=== PATIENT | female | born 1955 | race Caucasian/White ===

== ENCOUNTER 2018-05-08 18:01 | Inpatient (IN) | payer BC ==
[2018-05-08] MEDS ORDERED: ALPRAZOLAM 0.5 MG TAB PO (19:30)
[2018-05-08] MEDS ORDERED: ONDANSETRON 4 MG INJ IV (19:30)
[2018-05-08] MEDS ORDERED: ACET/BUTAL/CAFF/CODEINE CAP PO (19:30)
[2018-05-08] MEDS ORDERED: ZOLPIDEM 5 MG TAB PO (19:30)
[2018-05-08] MEDS ORDERED: NACL 0.9% 3 ML SYG IV (19:30)
[2018-05-08] MEDS ORDERED: VANCOMYCIN IV PER PHARMACY XX (19:30)
[2018-05-08] MEDS ORDERED: ACETAMINOPHEN 325 MG TAB PO (19:30)
[2018-05-08] MEDS ORDERED: DOCUSATE SODIUM 100 MG CAP PO (19:30)
[2018-05-08] MEDS ORDERED: METOCLOPRAMIDE 5 MG TAB PO (19:30)
[2018-05-08 20:04] LABS: ADD MAN DIFF? NO
[2018-05-08] MEDS: VANCOMYCIN 1 GM (PMX) 250 ML IVPB (20:08)
[2018-05-08] MEDS: SOD CHLORIDE 0.9% 1,000 ML IV (20:08)
[2018-05-08 20:09] LABS: BASOPHIL # 0.1 10^3/ul (0.0-0.1); BASOPHILS % 0.5 % (0.0-2.0); EOSINOPHILS # 0.1 10^3/ul (0.0-0.5); EOSINOPHILS % 1.4 % (0.0-7.0); HEMATOCRIT 41.5 % (37.0-47.0); HEMOGLOBIN 13.6 g/dl (12.0-16.0); LYMPHOCYTES # 2.7 10^3/ul (0.8-2.9); LYMPHOCYTES % 26.5 % (15.0-51.0); MEAN CORPUSCULAR HEMOGLOBIN 31.6 pg (29.0-33.0); MEAN CORPUSCULAR HGB CONC 32.8 g/dl (32.0-37.0); MEAN CORPUSCULAR VOLUME 96.5 fl (82.0-101.0); MEAN PLATELET VOLUME 10.9 fl (7.4-10.4); MONOCYTE # 0.7 10^3/ul (0.3-0.9); MONOCYTES % 7.4 % (0.0-11.0); NEUTROPHIL # 6.3 10^3/ul (1.6-7.5); NEUTROPHILS % 63.3 % (39.0-77.0); PLATELET COUNT 193 10^3/UL (140-415); RED CELL DISTRIBUTION WIDTH 12.9 % (11.5-14.5)
[2018-05-08] MEDS: GABAPENTIN 300 MG CAP PO (20:16)
[2018-05-08] MEDS: FAMOTIDINE 20 MG TAB PO (20:16)
[2018-05-08] MEDS: ATORVASTATIN 10 MG TAB PO (20:17)
[2018-05-08] MEDS: LOSARTAN 25 MG TAB PO (20:17)
[2018-05-08 20:25] LABS: INR 0.97
[2018-05-08 20:26] LABS: PARTIAL THROMBOPLASTIN TIME 29.8 Sec (23.0-35.0)
[2018-05-08 20:27] LABS: ALANINE AMINOTRANSFERASE 23 IU/L (13-69); ALBUMIN 4.1 g/dl (3.3-4.9); ALBUMIN/GLOBULIN RATIO 1.28; ALKALINE PHOSPHATASE 69 IU/L (42-121); ANION GAP 11 (5-13); ASPARTATE AMINO TRANSFERASE 26 IU/L (15-46); BILIRUBIN,INDIRECT 0.5 mg/dl (0-1.1); BILIRUBIN,TOTAL 0.5 mg/dl (0.2-1.3); BLOOD UREA NITROGEN 14 mg/dl (7-20); CALCIUM 9.7 mg/dl (8.4-10.2); CARBON DIOXIDE 27 mmol/L (21-31); CHLORIDE 100 mmol/L (97-110); CREATININE 1.17 mg/dl (0.44-1.00); Estimated GFR 47 mL/min (>60); GLUCOSE 136 mg/dl (70-220); MAGNESIUM 2.3 mg/dl (1.7-2.5); PHOSPHORUS 3.2 mg/dl (2.5-4.9); POTASSIUM 4.3 mmol/L (3.5-5.1); SODIUM 138 mmol/L (135-144); TOTAL PROTEIN 7.3 g/dl (6.1-8.1)
[2018-05-08] MEDS ORDERED: NORTRIPTYLINE 50 MG CAP PO (21:00)
[2018-05-08] MEDS: NORTRIPTYLINE 25 MG CAP PO (21:22)
[2018-05-08] MEDS: CHLORDIAZEPOXIDE/CLIDINIUM CAP PO (21:22)
[2018-05-08] MEDS: TOPIRAMATE 25 MG TAB PO (21:22)
[2018-05-08] MEDS: INSULIN ASPART [NOVOLOG] 3 ML PEN SC (21:23)
[2018-05-08] MEDS ORDERED: GLUCAGON 1 MG INJ IM (21:30)
[2018-05-08] MEDS ORDERED: DEXTROSE 50% 50 ML SYRINGE IV ×2 (21:30)
[2018-05-08] MEDS ORDERED: GLUCOSE GEL 15 GRAM TUBE BUCCAL (21:30)
[2018-05-08] MEDS ORDERED: GLUCOSE GEL 15 GRAM TUBE PO ×2 (21:30)
[2018-05-08] MEDS: HYDROCODONE/APAP (5/325) TAB PO (21:37)
[2018-05-08] MEDS: VANCOMYCIN 1.5 GM in SOD CHLORIDE 0.9% 250 ML IVPB (23:20)
[2018-05-09] MEDS: ACCU-CHEK XX (02:00)
[2018-05-09] MEDS: PANTOPRAZOLE (EC) 40 MG TAB PO (05:33)
[2018-05-09 05:56] LABS: ANION GAP 8 (5-13); BLOOD UREA NITROGEN 14 mg/dl (7-20); CALCIUM 9.2 mg/dl (8.4-10.2); CARBON DIOXIDE 28 mmol/L (21-31); CHLORIDE 102 mmol/L (97-110); CREATININE 1.29 mg/dl (0.44-1.00); Estimated GFR 42 mL/min (>60); GLUCOSE 150 mg/dl (70-220); MAGNESIUM 2.1 mg/dl (1.7-2.5); PHOSPHORUS 4.4 mg/dl (2.5-4.9); POTASSIUM 4.4 mmol/L (3.5-5.1); SODIUM 138 mmol/L (135-144)
[2018-05-09] MEDS ORDERED: PANTOPRAZOLE (EC) 40 MG TAB PO (06:00)
[2018-05-09 06:02] LABS: CHOLESTEROL 115 mg/dl (100-200)
[2018-05-09 06:02] LABS: CHOL/HDL RATIO 2.7 RATIO; CREATINE KINASE 38 IU/L (23-200); HDL CHOLESTEROL 42 mg/dl (35-98); LDL CHOLESTEROL,CALCULATED 42 mg/dl; TRIGLYCERIDES 155 mg/dl (0-149)
[2018-05-09] MEDS: INSULIN ASPART [NOVOLOG] 3 ML PEN SC ×7 (08:00→21:00)
[2018-05-09] MEDS: CHLORDIAZEPOXIDE/CLIDINIUM CAP PO ×2 (08:28→20:59)
[2018-05-09] MEDS: VANCOMYCIN 1 GM 250 ML IVPB ×2 (08:28→20:58)
[2018-05-09] MEDS: FENOFIBRATE 145 MG TAB PO (08:28)
[2018-05-09] MEDS: MAGNESIUM OXIDE 400 MG TAB PO (08:28)
[2018-05-09] MEDS: GABAPENTIN 300 MG CAP PO ×3 (08:28→20:59)
[2018-05-09] MEDS: ASPIRIN 81 MG TAB PO (08:28)
[2018-05-09] MEDS: TOPIRAMATE 25 MG TAB PO ×2 (08:28→21:00)
[2018-05-09] MEDS: AMILORIDE 5 MG TAB PO (08:29)
[2018-05-09] MEDS: ENOXAPARIN 40 MG/0.4 ML SYG SC (08:30)
[2018-05-09] MEDS: INSULIN GLARGINE [LANTus] (100 UNITS/ML) SYG SC (08:32)
[2018-05-09] MEDS: HYDROCODONE/APAP (5/325) TAB PO (12:08)
[2018-05-09] MEDS: SOD CHLORIDE 0.9% 1,000 ML IV (19:09)
[2018-05-09] MEDS: ATORVASTATIN 10 MG TAB PO (20:59)
[2018-05-09] MEDS: NORTRIPTYLINE 25 MG CAP PO (21:00)
[2018-05-10] MEDS: HYDROCODONE/APAP (5/325) TAB PO ×3 (00:18→20:49)
[2018-05-10] MEDS: ACCU-CHEK XX (01:03)
[2018-05-10] MEDS: PANTOPRAZOLE (EC) 40 MG TAB PO (05:31)
[2018-05-10 07:36] LABS: ADD MAN DIFF? NO
[2018-05-10 07:40] LABS: WHITE BLOOD COUNT 5.1 10^3/ul (4.8-10.8)
[2018-05-10 07:40] LABS: BASOPHILS % 0.8 % (0.0-2.0); EOSINOPHILS # 0.2 10^3/ul (0.0-0.5); EOSINOPHILS % 4.3 % (0.0-7.0); HEMATOCRIT 40.5 % (37.0-47.0); HEMOGLOBIN 12.8 g/dl (12.0-16.0); LYMPHOCYTES % 38.4 % (15.0-51.0); MEAN CORPUSCULAR HEMOGLOBIN 31.2 pg (29.0-33.0); MEAN CORPUSCULAR HGB CONC 31.6 g/dl (32.0-37.0); MEAN CORPUSCULAR VOLUME 98.8 fl (82.0-101.0); MEAN PLATELET VOLUME 10.7 fl (7.4-10.4); MONOCYTE # 0.4 10^3/ul (0.3-0.9); MONOCYTES % 8.2 % (0.0-11.0); NEUTROPHIL # 2.4 10^3/ul (1.6-7.5); NEUTROPHILS % 47.7 % (39.0-77.0); PLATELET COUNT 177 10^3/UL (140-415); RED CELL DISTRIBUTION WIDTH 12.8 % (11.5-14.5)
[2018-05-10] MEDS: INSULIN ASPART [NOVOLOG] 3 ML PEN SC ×7 (08:00→20:50)
[2018-05-10 08:01] LABS: ANION GAP 10 (5-13); BLOOD UREA NITROGEN 9 mg/dl (7-20); CALCIUM 9.3 mg/dl (8.4-10.2); CARBON DIOXIDE 24 mmol/L (21-31); CHLORIDE 104 mmol/L (97-110); CREATININE 0.93 mg/dl (0.44-1.00); Estimated GFR > 60 mL/min (>60); GLUCOSE 100 mg/dl (70-220); SODIUM 138 mmol/L (135-144)
[2018-05-10 08:10] LABS: VANCOMYCIN,TROUGH 16.3 ug/ml (10.0-20.0)
[2018-05-10] MEDS: INSULIN GLARGINE [LANTus] (100 UNITS/ML) SYG SC (08:30)
[2018-05-10] MEDS: MAGNESIUM OXIDE 400 MG TAB PO (09:25)
[2018-05-10] MEDS: ASPIRIN 81 MG TAB PO (09:25)
[2018-05-10] MEDS: CHLORDIAZEPOXIDE/CLIDINIUM CAP PO ×2 (09:25→23:09)
[2018-05-10] MEDS: AMILORIDE 5 MG TAB PO (09:26)
[2018-05-10] MEDS: GABAPENTIN 300 MG CAP PO ×3 (09:27→20:50)
[2018-05-10] MEDS: ENOXAPARIN 40 MG/0.4 ML SYG SC (09:27)
[2018-05-10] MEDS: FENOFIBRATE 145 MG TAB PO (09:28)
[2018-05-10] MEDS: TOPIRAMATE 25 MG TAB PO ×2 (09:28→20:50)
[2018-05-10] MEDS: VANCOMYCIN 1 GM 250 ML IVPB (09:47)
[2018-05-10] MEDS: SOD CHLORIDE 0.9% 1,000 ML IV (20:50)
[2018-05-10] MEDS: ATORVASTATIN 10 MG TAB PO (20:50)
[2018-05-10] MEDS: NORTRIPTYLINE 25 MG CAP PO (20:50)
[2018-05-10] MEDS: VANCOMYCIN 750 MG in SOD CHLORIDE 0.9% 150 ML IVPB (22:10)
[2018-05-11] MEDS: ACCU-CHEK XX (02:00)
[2018-05-11] MEDS: PANTOPRAZOLE (EC) 40 MG TAB PO (05:48)
[2018-05-11] MEDS: INSULIN ASPART [NOVOLOG] 3 ML PEN SC ×7 (08:00→20:48)
[2018-05-11] MEDS: ASPIRIN 81 MG TAB PO (08:15)
[2018-05-11] MEDS: AMILORIDE 5 MG TAB PO (08:15)
[2018-05-11] MEDS: FENOFIBRATE 145 MG TAB PO (08:15)
[2018-05-11] MEDS: CHLORDIAZEPOXIDE/CLIDINIUM CAP PO ×2 (08:15→20:34)
[2018-05-11] MEDS: GABAPENTIN 300 MG CAP PO ×3 (08:15→20:35)
[2018-05-11] MEDS: MAGNESIUM OXIDE 400 MG TAB PO (08:15)
[2018-05-11] MEDS: ENOXAPARIN 40 MG/0.4 ML SYG SC (08:20)
[2018-05-11] MEDS: TOPIRAMATE 25 MG TAB PO ×2 (08:20→20:40)
[2018-05-11] MEDS: INSULIN GLARGINE [LANTus] (100 UNITS/ML) SYG SC (08:20)
[2018-05-11] MEDS: VANCOMYCIN 750 MG in SOD CHLORIDE 0.9% 150 ML IVPB ×2 (10:01→21:07)
[2018-05-11 13:00] LABS: ADD UMIC NO; UR ASCORBIC ACID NEGATIVE (NEGATIVE); UR BILIRUBIN (Dip) NEGATIVE (NEGATIVE); UR BLOOD (Dip) NEGATIVE (NEGATIVE); UR CLARITY CLEAR (CLEAR); UR COLOR YELLOW (YELLOW); UR GLUCOSE (Dip) 3+ mg/dL (NEGATIVE); UR KETONES (Dip) 1+ mg/dL (NEGATIVE); UR LEUKOCYTE ESTERASE (Dip) NEGATIVE Leu/ul (NEGATIVE); UR NITRITE (Dip) NEGATIVE (NEGATIVE); UR SPECIFIC GRAVITY (Dip) 1.011 (1.003-1.030); UR TOTAL PROTEIN (Dip) NEGATIVE (NEGATIVE); UR UROBILINOGEN (Dip) NEGATIVE (NEGATIVE)
[2018-05-11] MEDS: SOD CHLORIDE 0.9% 1,000 ML IV (17:15)
[2018-05-11] MEDS: ATORVASTATIN 10 MG TAB PO (20:34)
[2018-05-11] MEDS: NORTRIPTYLINE 25 MG CAP PO (20:36)
[2018-05-11] MEDS: HYDROCODONE/APAP (5/325) TAB PO (20:40)
[2018-05-12] MEDS: ACCU-CHEK XX (02:00)
[2018-05-12] MEDS: HYDROCODONE/APAP (5/325) TAB PO ×2 (04:41→21:58)
[2018-05-12] MEDS: PANTOPRAZOLE (EC) 40 MG TAB PO (05:36)
[2018-05-12 08:39] LABS: ADD MAN DIFF? NO
[2018-05-12 08:48] LABS: WHITE BLOOD COUNT 4.8 10^3/ul (4.8-10.8)
[2018-05-12 08:48] LABS: BASOPHIL # 0.1 10^3/ul (0.0-0.1); EOSINOPHILS # 0.2 10^3/ul (0.0-0.5); HEMATOCRIT 40.8 % (37.0-47.0); HEMOGLOBIN 13.1 g/dl (12.0-16.0); LYMPHOCYTES # 2.3 10^3/ul (0.8-2.9); LYMPHOCYTES % 48.2 % (15.0-51.0); MEAN CORPUSCULAR HEMOGLOBIN 31.4 pg (29.0-33.0); MEAN CORPUSCULAR HGB CONC 32.1 g/dl (32.0-37.0); MEAN CORPUSCULAR VOLUME 97.8 fl (82.0-101.0); MEAN PLATELET VOLUME 10.8 fl (7.4-10.4); MONOCYTE # 0.5 10^3/ul (0.3-0.9); MONOCYTES % 10.4 % (0.0-11.0); NEUTROPHIL # 1.7 10^3/ul (1.6-7.5); NEUTROPHILS % 35.8 % (39.0-77.0); PLATELET COUNT 216 10^3/UL (140-415); RED BLOOD COUNT 4.17 10^6/ul (4.20-5.40); RED CELL DISTRIBUTION WIDTH 12.9 % (11.5-14.5)
[2018-05-12] MEDS: INSULIN ASPART [NOVOLOG] 3 ML PEN SC ×7 (08:56→20:43)
[2018-05-12] MEDS: INSULIN GLARGINE [LANTus] (100 UNITS/ML) SYG SC (08:57)
[2018-05-12] MEDS: ENOXAPARIN 40 MG/0.4 ML SYG SC (08:58)
[2018-05-12] MEDS: ASPIRIN 81 MG TAB PO (09:02)
[2018-05-12] MEDS: CHLORDIAZEPOXIDE/CLIDINIUM CAP PO ×2 (09:02→20:38)
[2018-05-12] MEDS: GABAPENTIN 300 MG CAP PO ×3 (09:03→20:38)
[2018-05-12] MEDS: AMILORIDE 5 MG TAB PO (09:03)
[2018-05-12] MEDS: TOPIRAMATE 25 MG TAB PO ×2 (09:04→22:16)
[2018-05-12] MEDS: FENOFIBRATE 145 MG TAB PO (09:04)
[2018-05-12 09:19] LABS: ANION GAP 8 (5-13); BLOOD UREA NITROGEN 8 mg/dl (7-20); CALCIUM 9.6 mg/dl (8.4-10.2); CARBON DIOXIDE 30 mmol/L (21-31); CHLORIDE 103 mmol/L (97-110); CREATININE 1.01 mg/dl (0.44-1.00); Estimated GFR 55 mL/min (>60); GLUCOSE 185 mg/dl (70-220); PHOSPHORUS 4.5 mg/dl (2.5-4.9); POTASSIUM 4.3 mmol/L (3.5-5.1); SODIUM 141 mmol/L (135-144)
[2018-05-12 09:23] LABS: VANCOMYCIN,TROUGH 13.2 ug/ml (10.0-20.0)
[2018-05-12] MEDS: VANCOMYCIN 750 MG in SOD CHLORIDE 0.9% 150 ML IVPB ×2 (09:34→20:38)
[2018-05-12] MEDS: RIFAMPIN 300 MG CAP PO (09:34)
[2018-05-12] MEDS: MAGNESIUM OXIDE 400 MG TAB PO (09:36)
[2018-05-12] MEDS: FLUCONAZOLE 100 MG TAB PO (10:23)
[2018-05-12] MEDS: GUAIFENESIN/DM (SR) TAB PO ×2 (12:39→20:38)
[2018-05-12 15:21] LABS: CREATININE, RANDOM URINE 60 mg/dL (20-275); MICROALBUMIN 0.2 mg/dL; MICROALBUMIN/CREATININE RATIO 3 (<30)
[2018-05-12] MEDS: ALBUTEROL/IPRATROPIUM (NEB) 3 ML AMP HHN ×2 (17:54→19:50)
[2018-05-12] MEDS: SOD CHLORIDE 0.9% 1,000 ML IV (18:09)
[2018-05-12] MEDS: NORTRIPTYLINE 25 MG CAP PO (20:38)
[2018-05-12] MEDS: ATORVASTATIN 10 MG TAB PO (20:38)
[2018-05-13] MEDS: ACCU-CHEK XX (02:00)
[2018-05-13] MEDS: PANTOPRAZOLE (EC) 40 MG TAB PO (05:57)
[2018-05-13] MEDS: SOD CHLORIDE 0.9% 1,000 ML IV (05:57)
[2018-05-13] MEDS: FLUCONAZOLE 100 MG TAB PO (08:13)
[2018-05-13] MEDS: RIFAMPIN 300 MG CAP PO (08:13)
[2018-05-13] MEDS: GUAIFENESIN/DM (SR) TAB PO (08:13)
[2018-05-13] MEDS: FENOFIBRATE 145 MG TAB PO (08:13)
[2018-05-13] MEDS: MAGNESIUM OXIDE 400 MG TAB PO (08:13)
[2018-05-13] MEDS: ASPIRIN 81 MG TAB PO (08:14)
[2018-05-13] MEDS: TOPIRAMATE 25 MG TAB PO (08:14)
[2018-05-13] MEDS: CHLORDIAZEPOXIDE/CLIDINIUM CAP PO (08:14)
[2018-05-13] MEDS: AMILORIDE 5 MG TAB PO (08:14)
[2018-05-13] MEDS: GABAPENTIN 300 MG CAP PO (08:14)
[2018-05-13] MEDS: INSULIN GLARGINE [LANTus] (100 UNITS/ML) SYG SC (08:16)
[2018-05-13] MEDS: INSULIN ASPART [NOVOLOG] 3 ML PEN SC ×2 (08:17)
[2018-05-13] MEDS: ALBUTEROL/IPRATROPIUM (NEB) 3 ML AMP HHN (08:23)
[2018-05-13] MEDS: DOXYCYCLINE 100 MG TAB PO (10:41)
[2018-05-13 15:27] LABS: CREATININE, RANDOM URINE 55 mg/dL (20-275); MICROALBUMIN 0.2 mg/dL; MICROALBUMIN/CREATININE RATIO 4 (<30)
== END 2018-05-13 12:05 | disposition home health service (06) | DRG 603 ==
LOC: PP2 18:01
DX: L03.115 Cellulitis of right lower limb (principal); Z68.42 Body mass index [BMI] 45.0-49.9, adult; E11.43 Type 2 diabetes mellitus with diabetic autonomic (poly)neuropathy; E11.65 Type 2 diabetes mellitus with hyperglycemia; K31.84 Gastroparesis; E66.01 Morbid (severe) obesity due to excess calories; B37.3 Candidiasis of vulva and vagina; I10 Essential (primary) hypertension; E78.5 Hyperlipidemia, unspecified; F41.9 Anxiety disorder, unspecified; R05 Cough; J02.9 Acute pharyngitis, unspecified; Z79.4 Long term (current) use of insulin; Z79.82 Long term (current) use of aspirin; Z87.891 Personal history of nicotine dependence; Z98.84 Bariatric surgery status; Z90.49 Acquired absence of other specified parts of digestive tract
CPT/HCPCS: 71045; 71046; 80048; 80053; 80061; 80202; 81003; 82043; 82550; 82607; 82962; 83036; 83735; 84100; 84443; 85025; 85610; 85730; 90686; 93005; 93970; 94640; 94664; 97161